=== PATIENT | female | born 1985 | race American Indian/Alaskan Native ===

== ENCOUNTER 2017-11-12 22:55 | Emergency (ER) | payer MEDICAID | END 2017-11-13 | disposition left against medical advice (07) | LOC: ED 22:55 | DX: R10.9 Unspecified abdominal pain (principal); Z53.21 Procedure and treatment not carried out due to patient leaving prior to being seen by health care provider ==

== ENCOUNTER 2018-05-08 17:12 | Outpatient (CLI) | payer MEDICAID ==
[2018-05-08 17:37] VITALS: BP 115/75
[2018-05-08] MEDS ORDERED: VISTARIL IM ONE (19:02)
== END 2018-05-08 19:45 | disposition home or self-care (01) ==
LOC: TRG 17:12
PROVIDERS: ATTEND Obstetrics & Gynecology
DX: O47.1 False labor at or after 37 completed weeks of gestation (principal); Z3A.39 39 weeks gestation of pregnancy
CPT/HCPCS: 59025; 96372; J3410

== ENCOUNTER 2018-05-15 09:50 | Inpatient (IN) | payer MEDICAID ==
[2018-05-15] MEDS ORDERED: BRETHINE SUB-Q PRN (11:23)
[2018-05-15] MEDS ORDERED: BRETHINE IVP PRN (11:23)
[2018-05-15] MEDS ORDERED: MINERAL OIL PO PRN (11:23)
[2018-05-15] MEDS ORDERED: XYLOCAINE 2% INFILTRATI ONE (11:23)
[2018-05-15] MEDS ORDERED: ZOFRAN IV PRN (11:23)
[2018-05-15] MEDS ORDERED: PITOCin/NS 30 UNIT/500ML 30 UNITS/500 ML BAG IV SCH (12:00)
[2018-05-15] MEDS ORDERED: PITOCin/NS 20 UNIT/1000ML DRIP 20 UNITS/1,000 ML BAG IV SCH ×2 (12:00→21:00)
[2018-05-15 12:24] LABS: Hematocrit 42.2 % (30.3-42.9); Hemoglobin 13.9 gm/dl (10.1-14.3); Mean Corpuscular HGB Conc 33 % (30-34); Mean Corpuscular Volume 83 fl (79-97); Platelet Count 167 K/mm3 (140-440); Red Blood Count 5.11 M/mm3 (3.65-5.03); Red Cell Distribution Width 17.8 % (13.2-15.2)
[2018-05-15] MEDS: SUBLIMAZE IV PRN ×2 (12:58→15:21)
[2018-05-15] MEDS: LACTATED RINGERS 1,000 ML IV SCH ×3 (12:59→18:52)
--- NOTE | 2018-05-15 16:48 | History and Physical Report ---
History of Present Illness Date of examination: 05/15/18 (constant pain) Date of admission: 05/15/18 09:51 History of present illness: EDC Confirmation: 05/19/2018 Gestational Age: 7 6/7 weeks Past History : 8 Term Births: 5 Premature Births: 1 Living Children: 6 Para: 6 Mult. Births: 1 Aborta: 1 Spont. Ab: 1 # 1 Delivery date: 2006 Weeks Gestation: 39.6 Delivery type: Anesthesia type: epidural Delivery location: [place] Sex: Male weight: 6 # 2 Delivery date: 2009 Weeks Gestation: 38 Delivery type: Anesthesia type: epidural Delivery location: [facility] Infant Sex: Male weight: 6 4 # 3 Delivery date: 2012 Weeks Gestation: 39.6 Delivery type: Anesthesia type: epidural Delivery location: [facility] Sex: Male weight: 6 # 4 Delivery date: 04/2013 Weeks Gestation: 4 Delivery type: SAB # 5 Delivery date: 2013 Weeks Gestation: 39 Delivery type: Anesthesia type: epidural Delivery location: [facility] [place] Sex: Female weight: 6-5 Comments: denies # 6 Delivery date: 2014 Weeks Gestation: 39 Delivery type: Anesthesia type: epidural Delivery location: [facility] Inf[facility] Sex: Female weight: 6-6 # 7 Delivery date: 2015 Weeks Gestation: 25 Delivery type: Anesthesia type: epidural Delivery location: [facility] Infant Sex: m/f weight: 2.5 Comments: Twins: male 2 days after delivery; girl is alive and well Past Medical History: Reviewed history from 06/22/2013 and no changes required: Negative Past Medical History Past Surgical History: Reviewed history from 06/22/2013 and no changes required: Negative Past Surgical History Past Medical History Abnormal PAP: negative JOSIE Exposure: negative Infertility: negative Uterine Anomaly: negative Uterine Surgery (not C/S): negative Other Gynecologic Problems: negative Social Hx: no e/t/d Infection History Hx of STD: chlamydia HIV Risk Eval: low risk Hepatitis B Risk Eval: low risk Personal hx. of genital herpes: no Partner hx. of genital herpes: no Rash, Viral, or Febrile illness since last LMP? no Varicella/Chicken Pox Status: Previous Disease TB Risk: no Genetic History Congenital Heart Defect: Mom: no Dad: no Lexie Disease: Mom: no Dad: no Thalassemia Mom: no Dad: no Neural Tube Defect Mom: no Dad: no Down's Syndrome Mom: no Dad: no Barron-Sachs Mom: no Dad: no Sickle Cell Disease/Trait Mom: no Dad: no Hemophilia Mom: no Dad: no Muscular Dystrophy Mom: no Dad: no Cystic Fibrosis Mom: no Dad: no [place] Chorea Mom: no Dad: no Mental Retardation Mom: no Dad: no Fragile X Mom: no Dad: no Other Genetic/Chromosomal Disorder Mom: no Dad: no Child w/other defect Mom: no Dad: no Enviromental Exposures Xray Exposure: no Medication, drug, or alcohol use since LMP: no Chemical/Other Exposure: no Exposure to Cat Liter: no Hx of Parvovirus (Fifth Disease): no Occupational Exposure to Children: none Current Allergies (reviewed today): No known allergies Past History - Obstetrical History Expected Date of Delivery: 05/19/18 Actual Gestation: 39 Week(s) 3 Day(s) : 8 Para: 6 Hx # Term Pregnancies: 5 Number of Pregnancies: 1 (twins: female survived Male passed) Spontaneous Abortions: 1 Induced : 0 Number of Living Children: 6 Medications and Allergies Allergies Allergy/AdvReac Type Severity Reaction Status Date / Time No Known Allergies Allergy Verified 03/22/13 12:31 Home Medications Medication Instructions Recorded Confirmed Last Taken Type Pnv95/Ferrous Fumarate/FA 1 tab PO DAILY 11/12/13 05/15/18 05/14/18 21:00 History [ Vitamins] 1 Acetaminophen/Diphenhydramine 1 each PO HS PRN 05/15/18 05/15/18 05/14/18 22:00 History [Tylenol Pm Ex-Strength Caplet] 1 Active Meds: Active Medications Ephedrine Sulfate (Ephedrine Sulfate) 10 mg IV Q2M PRN PRN Reason: Hypotension Fentanyl (Sublimaze) 100 mcg IV Q2H PRN PRN Reason: Labor Pain Last Admin: 05/15/18 15:21 Dose: 100 mcg Documented by: Lactated Ringer's (Lactated Ringers) 1,000 mls @ 125 mls/hr IV DIRECT KIRSTIN Last Admin: 05/15/18 16:40 Dose: 1,200 mls/hr Documented by: Oxytocin/Sodium Chloride (Pitocin/Ns 20 Unit/1000ml Drip) 20 units in 1,000 mls @ 125 mls/hr IV DIRECT KIRSTIN Oxytocin/Sodium Chloride (Pitocin/Ns 30 Unit/500ml) 30 units in 500 mls @ 4 mls/hr IV Q30MIN [facility]; Protocol Last Titration: 05/15/18 14:41 Dose: 12 ml/hr, 12 mls/hr Documented by: Sodium Chloride (Nacl 0.9% 1000 Ml) 1,000 mls @ 0 mls/hr VG DIRECT KIRSTIN Mineral Oil (Mineral Oil) 30 ml PO QHS PRN PRN Reason: Constipation Ondansetron HCl (Zofran) 4 mg IV Q8H PRN PRN Reason: Nausea And Vomiting Terbutaline Sulfate (Brethine) 0.25 mg SUB-Q ONCE PRN PRN Reason: Hyperstimulation/Hypertonicity Terbutaline Sulfate (Brethine) 0.25 mg IVP ONCE PRN PRN Reason: Hyperstimulation/Hypertonicity - Vital Signs Vital signs: Vital Signs Temp Resp 98.1 F 18 05/15/18 10:13 05/15/18 10:13 Temp Pulse Resp BP Pulse Ox 98.0 F 85 20 116/63 05/15/18 14:06 05/15/18 16:15 05/15/18 15:21 05/15/18 16:15 - Physical Exam Breasts: Positive: deferred Cardiovascular: Regular rate, Normal S1, Normal S2 Lungs: Positive: Clear to auscultation Abdomen: Positive: normal appearance, soft, normal bowel sounds. Negative: distention, tenderness Genitourinary (Female): Positive: normal external genitalia Vulva: both: normal Vagina: Positive: normal moisture. Negative: discharge Cervix: Negative: lesion, discharge Uterus: Positive: normal size, normal contour Adnexa: both: normal Anus/Rectum: Positive: normal perianal skin, heme negative. Negative: rectal mass, hemorrhoids Extremities: Positive: normal Deep Tendon Reflex Grade: Normal +2 - Obstetrical FHR: category 1 Uterine Contraction Monitor Mode: Internal Cervical Dilatation: 4 (copious amts clear fluid) Cervical Effacement Percentage: 100 (ISE/IUPC placed) station: 0 Uterine Contraction Pattern: Regular Uterine Tone Measurement Phase: Resting Uterine Contraction Intensity: Moderate Results Result Diagrams: 05/15/18 11:54 Abnormal lab results 02/04/19 Range/Units 11:54 RBC 5.11 H (3.65-5.03) M/mm3 MCH 27 L (28-32) pg RDW 17.8 H (13.2-15.2) % All other labs normal. Strep Gp B LUCIO Negative HBsAg Screen Negative Negative *1 RPR Non Reactive Non Reactive *2 Rubella Antibodies, IgG 18.30 index Immune >0.99 *3 Non-immune <0.90 Equivocal 0.90 - 0.99 Immune >0.99 ABO Grouping O *4 Rh Factor Positive *5 Please note: Prior records for this patient's ABO / Rh type are not available for additional verification. Antibody Screen Negative Negative *6 WBC 7.1 x10E3/uL 3.4-10.8 *7 RBC 4.53 x10E6/uL 3.77-5.28 *8 Hemoglobin [L] 10.4 g/dL 11.1-15.9 *9 Hematocrit 34.9 % 34.0-46.6 *10 MCV [L] 77 fL 79-97 *11 MCH [L] 23.0 pg 26.6-33.0 *12 MCHC [L] 29.8 g/dL 31.5-35.7 *13 RDW [H] 17.2 % 12.3-15.4 *14 Platelets 304 x10E3/uL 150-379 *15 Neutrophils 73 % Not Estab. *16 Lymphs 17 % Not Estab. *17 Monocytes 8 % Not Estab. *18 Eos 2 % Not Estab. *19 Basos 0 % Not Estab. *20 ! Immature Cells <No Reported Value> *21 Neutrophils (Absolute) 5.2 x10E3/uL 1.4-7.0 *22 Lymphs (Absolute) 1.2 x10E3/uL 0.7-3.1 *23 Monocytes(Absolute) 0.6 x10E3/uL 0.1-0.9 *24 Eos (Absolute) 0.1 x10E3/uL 0.0-0.4 *25 Baso (Absolute) 0.0 x10E3/uL 0.0-0.2 *26 ! Immature Granulocytes 0 % Not Estab. *27 ! Immature Grans (Abs) 0.0 x10E3/uL 0.0-0.1 *28 ! NRBC <No Reported Value> *29 Hematology Comments: <No Reported Value> *30 Tests: (2) SMN1 Copy Number Analysis ([id number]) ! Genetic Counselor: Not applicable *31 ! Client Specimen ID: Not applicable *32 ! Specimen Type: SPRCS *33 Peripheral Blood ! Specimen(s) Received: SPRCS *34 1 - Yellow (ACD) 10 ml round bottom tube(s) ! Clinical Data: SPRCS *35 Not Provided ! Ethnicity: SPRCS *36 Not Provided ! SMA Results: SPRCS *37 SMN1 copy number: 3 (Reduced Carrier Risk) ! SMA Interpretation: Note *38 This individual has an SMN1 copy number of three (or more). This result reduces but does not eliminate the risk to be a carrier of SMA. Information regarding clinical indication may provide a more detailed interpretation. Tests: (3) Cystic Fibrosis Profile (089804) ! CF, Screen Comment: *45 RESULTS: Negative for 32 mutations analyzed Tests: (4) HB Solu + Rflx Fra (188421) Hemoglobin (Hgb) Solubility Negative Negative *47 Tests: (5) HCV Ab w/Rflx to Verification ([id number]) ! HCV Ab <0.1 s/co ratio 0.0-0.9 *48 Tests: (6) Comment: (225272) ! Comment: SPRCS *49 Non reactive HCV antibody screen is consistent with no HCV infection, unless recent infection is suspected or other evidence exists to indicate HCV infection. Tests: (7) Panel 289079 ([id number]) HIV Screen 4th Generation wRfx Non Reactive Non Reactive *50 Tests: (8) Urine Culture, Routine (120130) Urine Culture, Routine Final report *51 Tests: (9) Result ([id number]) ! Result 1 MUG *52 Mixed urogenital yehuda 25,000-50,000 colony forming units per mL Assessment and Plan @ 39 weeks in active labor GBS negative Orders in EMR
[2018-05-15] MEDS ORDERED: NARCAN 2 MG/2 ML IV PRN (16:51)
--- NOTE | 2018-05-15 16:53 | Anesthesia Consultation ---
Anesthesia Consult and Med Hx - Airway Anesthetic Teeth Evaluation: Good ROM Head & Neck: Adequate Mental/Hyoid Distance: Adequate Mallampati Class: Class I Intubation Access Assessment: Good - Pulmonary Exam CTA: Yes - Cardiac Exam Cardiac Exam: RRR - Pre-Operative Health Status ASA Pre-Surgery Classification: ASA2 Proposed Anesthetic Plan: Epidural - Pulmonary Hx Smoking: No Hx Asthma: No COPD: No Hx Pneumonia: No - Cardiovascular System Hx Hypertension: No - Central Nervous System Hx Seizures: No Hx Psychiatric Problems: Yes (ptsd) - Endocrine Hx Renal Disease: No Hx End Stage Renal Disease: No Hx Hypothyroidism: No Hx Hyperthyroidism: No - Hematic Hx Anemia: No Hx Sickle Cell Disease: No - Other Systems Hx Alcohol Use: No
--- NOTE | 2018-05-15 16:55 | Anesthesia Day of Surgery ---
Anesthesia Day of Surgery - Day of Surgery Patient Examined: Yes Patient H&P Reviewed: Yes Patient is NPO: Yes Beta Blockers: No Cardiac Clearance: No Pulmonary Clearance: No Eusebio's Test: N/A
[2018-05-15] MEDS ORDERED: LIDOCAINE 1.5%/EPI 1:200,000 INFILTRATI ONE (16:58)
[2018-05-15] MEDS ORDERED: MARCAINE 0.25% INFILTRATI ONE (16:58)
[2018-05-15] MEDS ORDERED: NACL 0.9% 1000 ML 1,000 ML VG SCH (17:00)
[2018-05-15] MEDS ORDERED: fentaNYL-BUPIV 2 MCG/ML-0.125% 200 MCG/100 ML BAG EPIDURAL SCH (17:00)
--- NOTE | 2018-05-15 18:00 | Progress Note ---
Assessment and Plan pitocin off during epidural placement pt had variables prior and amnio infusion started SVE 4,100,-2 Pit restarted Will re-eval in one hour. Subjective - Subjective Date of service: 05/15/18 (getting relief with epidural) Interval history: EDC Confirmation: 05/19/2018 Gestational Age: 7 6/7 weeks Past History : 8 Term Births: 5 Premature Births: 1 Living Children: 6 Para: 6 Mult. Births: 1 Aborta: 1 Spont. Ab: 1 # 1 Delivery date: 2006 Weeks Gestation: 39.6 Delivery type: Anesthesia type: epidural Delivery location: [place] Infant Sex: Male weight: 6 # 2 Delivery date: 2009 Weeks Gestation: 38 Delivery type: Anesthesia type: epidural Delivery location: [facility] Infant Sex: Male weight: 6 4 # 3 Delivery date: 2012 Weeks Gestation: 39.6 Delivery type: Anesthesia type: epidural Delivery location: [facility] Infant Sex: Male weight: 6 # 4 Delivery date: 04/2013 Weeks Gestation: 4 Delivery type: SAB # 5 Delivery date: 2013 Weeks Gestation: 39 Delivery type: Anesthesia type: epidural Delivery location[place] [facility] [place] Sex: Female weight: 6-5 Comments: denies # 6 Delivery date: 2014 Weeks Gestation: 39 Delivery type: Anesthesia type: epidural Delivery location: [facility] Inf[facility] Sex: Female weight: 6-6 # 7 Delivery date: 2015 Weeks Gestation: 25 Delivery type: Anesthesia type: epidural Delivery location: [facility] Sex: m/f weight: 2.5 Comments: Twins: male 2 days after delivery; girl is alive and well Past Medical History: Reviewed history from 06/22/2013 and no changes required: Negative Past Medical History Past Surgical History: Reviewed history from 06/22/2013 and no changes required: Negative Past Surgical History Past Medical History Abnormal PAP: negative JOSIE Exposure: negative Infertility: negative Uterine Anomaly: negative Uterine Surgery (not C/S): negative Other Gynecologic Problems: negative Social Hx: no e/t/d Infection History Hx of STD: chlamydia HIV Risk Eval: low risk Hepatitis B Risk Eval: low risk Personal hx. of genital herpes: no Partner hx. of genital herpes: no Rash, Viral, or Febrile illness since last LMP? no Varicella/Chicken Pox Status: Previous Disease TB Risk: no Genetic History Congenital Heart Defect: Mom: no Dad: no Lexie Disease: Mom: no Dad: no Thalassemia Mom: no Dad: no Neural Tube Defect Mom: no Dad: no Down's Syndrome Mom: no Dad: no Barron-Sachs Mom: no Dad: no Sickle Cell Disease/Trait Mom: no Dad: no Hemophilia Mom: no Dad: no Muscular Dystrophy Mom: no Dad: no Cystic Fibrosis Mom: no Dad: no [place] Chorea Mom: no Dad: no Mental Retardation Mom: no Dad: no Fragile X Mom: no Dad: no Other Genetic/Chromosomal Disorder Mom: no Dad: no Child w/other defect Mom: no Dad: no Enviromental Exposures Xray Exposure: no Medication, drug, or alcohol use since LMP: no Chemical/Other Exposure: no Exposure to Cat Liter: no Hx of Parvovirus (Fifth Disease): no Occupational Exposure to Children: none Current Allergies (reviewed today): No known allergies Patient reports: movement normal Objective - Vital Signs Vital Signs: Vital Signs - 12hr 05/15/18 05/15/18 05/15/18 10:13 10:35 12:44 Temperature 98.1 F Pulse Rate 87 86 Respiratory 18 Rate Blood Pressure 114/73 111/65 O2 Sat by Pulse Oximetry 05/15/18 05/15/18 05/15/18 13:15 13:28 13:45 Temperature Pulse Rate 78 69 Respiratory 20 Rate Blood Pressure 96/53 98/60 O2 Sat by Pulse Oximetry 05/15/18 05/15/18 05/15/18 14:06 14:14 14:44 Temperature 98.0 F Pulse Rate 70 75 Respiratory 20 Rate Blood Pressure 105/61 104/66 O2 Sat by Pulse Oximetry 05/15/18 05/15/18 05/15/18 15:15 15:21 15:46 Temperature Pulse Rate 82 81 Respiratory 20 Rate Blood Pressure 118/67 112/56 O2 Sat by Pulse Oximetry 05/15/18 05/15/18 05/15/18 16:15 16:46 16:51 Temperature Pulse Rate 85 94 H 92 H Respiratory Rate Blood Pressure 116/63 123/79 O2 Sat by Pulse 100 Oximetry 05/15/18 05/15/18 05/15/18 16:56 17:01 17:06 Temperature Pulse Rate 101 H 95 H 93 H Respiratory Rate Blood Pressure O2 Sat by Pulse 100 100 100 Oximetry 05/15/18 05/15/18 05/15/18 17:11 17:16 17:25 Temperature Pulse Rate 85 86 109 H Respiratory Rate Blood Pressure 95/57 O2 Sat by Pulse 100 99 Oximetry 05/15/18 05/15/18 05/15/18 17:30 17:33 17:35 Temperature Pulse Rate 108 H 116 H 111 H Respiratory Rate Blood Pressure 137/77 138/75 O2 Sat by Pulse 100 99 Oximetry 05/15/18 05/15/18 05/15/18 17:37 17:39 17:40 Temperature Pulse Rate 112 H 105 H 110 H Respiratory Rate Blood Pressure 134/80 123/82 O2 Sat by Pulse 98 Oximetry 05/15/18 05/15/18 05/15/18 17:41 17:43 17:45 Temperature Pulse Rate 114 H 108 H 111 H Respiratory Rate Blood Pressure 115/74 112/69 99/67 O2 Sat by Pulse 99 Oximetry 05/15/18 05/15/18 05/15/18 17:46 17:47 17:50 Temperature 98.3 F Pulse Rate 123 H 113 H Respiratory 20 Rate Blood Pressure 115/57 O2 Sat by Pulse 98 Oximetry 05/15/18 05/15/18 05/15/18 17:51 17:53 17:55 Temperature Pulse Rate 118 H 126 H 94 H Respiratory Rate Blood Pressure 93/52 95/52 O2 Sat by Pulse 97 Oximetry - Exam Breasts: deferred Cardiovascular: Regular rate Lungs: Normal air movement Abdomen: Present: normal appearance, soft. Absent: distention, tenderness Uterus: Present: normal FHR: auscultation normal, category 1 Uterine Contraction Monitor Mode: Internal Cervical Dilatation: 4 Cervical Effacement Percentage: 100 station: -2 Uterine Contraction Pattern: Irregular Uterine Tone Measurement Phase: Resting Extremities: normal Deep Tendon Reflex Grade: Normal +2 - Labs Labs: Abnormal Labs 05/15/18 11:54 RBC 5.11 H MCH 27 L RDW 17.8 H Laboratory Results - last 24 hr 05/15/18 05/15/18 11:54 11:54 WBC 7.2 RBC 5.11 H Hgb 13.9 Hct 42.2 MCV 83 MCH 27 L MCHC 33 RDW 17.8 H Plt Count 167 Blood Type O POSITIVE Antibody Screen Negative
[2018-05-15 18:48] LABS: Amphetamine Screen,Urine PRESUMPTIVE NEGATIVE; Benzodiazepines Screen,Urine PRESUMPTIVE NEGATIVE; Cannabinoid Screen,Urine PRESUMPTIVE NEGATIVE; Cocaine Screen,Urine PRESUMPTIVE NEGATIVE; Methadone Screen,Urine PRESUMPTIVE NEGATIVE; Opiate Screen,Urine PRESUMPTIVE NEGATIVE
[2018-05-15] MEDS ORDERED: REGLAN IV ONE (20:34)
[2018-05-15] MEDS ORDERED: PEPCID IV ONE (20:34)
[2018-05-15] MEDS ORDERED: BICITRA PO ONE (20:34)
--- NOTE | 2018-05-15 20:34 | Progress Note ---
Assessment and Plan Consulted with Will restart pitocin and if variables persist will plan for c/s. Explained all concerns to pt and family member. Reviewed risks to pt and NB and the possible need for c/s with all future pregnancies. Arrest of dilatation despite adequate labor and nonreassuring tracing. Pt consented. C/S called Orders in EMR. Subjective - Subjective Date of service: 05/15/18 (deep variables continue ) Interval history: EDC Confirmation: 05/19/2018 Gestational Age: 7 6/7 weeks Past History : 8 Term Births: 5 Premature Births: 1 Living Children: 6 Para: 6 Mult. Births: 1 Aborta: 1 Spont. Ab: 1 # 1 Delivery date: 2006 Weeks Gestation: 39.6 Delivery type: Anesthesia type: epidural Delivery location: [place] Sex: Male weight: 6 # 2 Delivery date: 2009 Weeks Gestation: 38 Delivery type: Anesthesia type: epidural Delivery location: [facility] Sex: Male weight: 6 4 # 3 Delivery date: 2012 Weeks Gestation: 39.6 Delivery type: Anesthesia type: epidural Delivery location: [facility] Infant Sex: Male weight: 6 # 4 Delivery date: 04/2013 Weeks Gestation: 4 Delivery type: SAB # 5 Delivery date: 2013 Weeks Gestation: 39 Delivery type: Anesthesia type: epidural [place] [facility] [place] Sex: Female weight: 6-5 Comments: denies # 6 Delivery date: 2014 Weeks Gestation: 39 Delivery type: Anesthesia type: epidural Delivery location: [facility] Sex: Female weight: 6-6 # 7 Delivery date: 2015 Weeks Gestation: 25 Delivery type: Anesthesia type: epidural Delivery location: [facility] Infant Sex: m/f weight: 2.5 Comments: Twins: male 2 days after delivery; girl is alive and well Past Medical History: Reviewed history from 06/22/2013 and no changes required: Negative Past Medical History Past Surgical History: Reviewed history from 06/22/2013 and no changes required: Negative Past Surgical History Past Medical History Abnormal PAP: negative JOSIE Exposure: negative Infertility: negative Uterine Anomaly: negative Uterine Surgery (not C/S): negative Other Gynecologic Problems: negative Social Hx: no e/t/d Infection History Hx of STD: chlamydia HIV Risk Eval: low risk Hepatitis B Risk Eval: low risk Personal hx. of genital herpes: no Partner hx. of genital herpes: no Rash, Viral, or Febrile illness since last LMP? no Varicella/Chicken Pox Status: Previous Disease TB Risk: no Genetic History Congenital Heart Defect: Mom: no Dad: no Lexie Disease: Mom: no Dad: no Thalassemia Mom: no Dad: no Neural Tube Defect Mom: no Dad: no Down's Syndrome Mom: no Dad: no Barron-Sachs Mom: no Dad: no Sickle Cell Disease/Trait Mom: no Dad: no Hemophilia Mom: no Dad: no Muscular Dystrophy Mom: no Dad: no Cystic Fibrosis Mom: no Dad: no Jan Chorea Mom: no Dad: no Mental Retardation Mom: no Dad: no Fragile X Mom: no Dad: no Other Genetic/Chromosomal Disorder Mom: no Dad: no Child w/other defect Mom: no Dad: no Enviromental Exposures Xray Exposure: no Medication, drug, or alcohol use since LMP: no Chemical/Other Exposure: no Exposure to Cat Liter: no Hx of Parvovirus (Fifth Disease): no Occupational Exposure to Children: none Current Allergies (reviewed today): No known allergies Patient reports: movement normal Objective - Vital Signs Vital Signs: Vital Signs - 12hr 05/15/18 05/15/18 05/15/18 10:13 10:35 12:44 Temperature 98.1 F Pulse Rate 87 86 Respiratory 18 Rate Blood Pressure 114/73 111/65 O2 Sat by Pulse Oximetry 05/15/18 05/15/18 05/15/18 13:15 13:28 13:45 Temperature Pulse Rate 78 69 Respiratory 20 Rate Blood Pressure 96/53 98/60 O2 Sat by Pulse Oximetry 05/15/18 05/15/18 05/15/18 14:06 14:14 14:44 Temperature 98.0 F Pulse Rate 70 75 Respiratory 20 Rate Blood Pressure 105/61 104/66 O2 Sat by Pulse Oximetry 05/15/18 05/15/18 05/15/18 15:15 15:21 15:46 Temperature Pulse Rate 82 81 Respiratory 20 Rate Blood Pressure 118/67 112/56 O2 Sat by Pulse Oximetry 05/15/18 05/15/18 05/15/18 16:15 16:46 16:51 Temperature Pulse Rate 85 94 H 92 H Respiratory Rate Blood Pressure 116/63 123/79 O2 Sat by Pulse 100 Oximetry 05/15/18 05/15/18 05/15/18 16:56 17:01 17:06 Temperature Pulse Rate 101 H 95 H 93 H Respiratory Rate Blood Pressure O2 Sat by Pulse 100 100 100 Oximetry 05/15/18 05/15/18 05/15/18 17:11 17:16 17:25 Temperature Pulse Rate 85 86 109 H Respiratory Rate Blood Pressure 95/57 O2 Sat by Pulse 100 99 Oximetry 05/15/18 05/15/18 05/15/18 17:30 17:33 17:35 Temperature Pulse Rate 108 H 116 H 111 H Respiratory Rate Blood Pressure 137/77 138/75 O2 Sat by Pulse 100 99 Oximetry 05/15/18 05/15/18 05/15/18 17:37 17:39 17:40 Temperature Pulse Rate 112 H 105 H 110 H Respiratory Rate Blood Pressure 134/80 123/82 O2 Sat by Pulse 98 Oximetry 05/15/18 05/15/18 05/15/18 17:41 17:43 17:45 Temperature Pulse Rate 114 H 108 H 111 H Respiratory Rate Blood Pressure 115/74 112/69 99/67 O2 Sat by Pulse 99 Oximetry 05/15/18 05/15/18 05/15/18 17:46 17:47 17:50 Temperature 98.3 F Pulse Rate 123 H 113 H Respiratory 20 Rate Blood Pressure 115/57 O2 Sat by Pulse 98 Oximetry 05/15/18 05/15/18 05/15/18 17:51 17:53 17:55 Temperature Pulse Rate 118 H 126 H 94 H Respiratory Rate Blood Pressure 93/52 95/52 O2 Sat by Pulse 97 Oximetry 05/15/18 05/15/18 05/15/18 17:58 17:59 18:00 Temperature Pulse Rate 100 H 88 74 Respiratory Rate Blood Pressure 77/38 64/31 O2 Sat by Pulse 96 Oximetry 05/15/18 05/15/18 05/15/18 18:01 18:03 18:05 Temperature Pulse Rate 75 62 54 L Respiratory Rate Blood Pressure 85/48 119/68 122/55 O2 Sat by Pulse 100 Oximetry 05/15/18 05/15/18 05/15/18 18:10 18:11 18:15 Temperature Pulse Rate 90 93 H 87 Respiratory Rate Blood Pressure 110/55 O2 Sat by Pulse 99 98 Oximetry 05/15/18 05/15/1805/15/19 18:17 18:20 18:21 Temperature Pulse Rate 97 H 86 89 Respiratory Rate Blood Pressure 115/56 102/58 O2 Sat by Pulse 97 Oximetry 05/15/18 05/15/18 05/15/18 18:25 18:27 18:30 Temperature Pulse Rate 91 H 101 H 121 H Respiratory Rate Blood Pressure 103/54 O2 Sat by Pulse 98 98 Oximetry 05/15/18 05/15/18 05/15/18 18:31 18:35 18:36 Temperature Pulse Rate 107 H 116 H 112 H Respiratory Rate Blood Pressure 95/51 85/48 O2 Sat by Pulse 98 Oximetry 05/15/18 05/15/18 05/15/18 18:40 18:41 18:44 Temperature Pulse Rate 108 H 117 H 101 H Respiratory Rate Blood Pressure 89/50 98/54 O2 Sat by Pulse 98 Oximetry 05/15/18 05/15/18 05/15/18 18:45 18:47 18:50 Temperature Pulse Rate 105 H 82 78 Respiratory Rate Blood Pressure 103/54 O2 Sat by Pulse 99 98 Oximetry 05/15/18 05/15/18 05/15/18 18:51 18:55 18:56 Temperature Pulse Rate 72 86 83 Respiratory Rate Blood Pressure 107/57 107/57 O2 Sat by Pulse 99 Oximetry 05/15/18 05/15/18 05/15/18 19:00 19:01 19:05 Temperature Pulse Rate 114 H 94 H 112 H Respiratory Rate Blood Pressure 99/56 O2 Sat by Pulse 99 98 Oximetry 05/15/18 05/15/18 05/15/18 19:07 19:10 19:11 Temperature Pulse Rate 110 H 89 101 H Respiratory Rate Blood Pressure 109/56 105/57 O2 Sat by Pulse 100 Oximetry 05/15/18 05/15/18 05/15/18 19:15 19:16 19:20 Temperature Pulse Rate 95 H 108 H 113 H Respiratory Rate Blood Pressure 98/53 O2 Sat by Pulse 100 100 Oximetry 05/15/18 05/15/18 05/15/18 19:23 19:25 19:30 Temperature Pulse Rate 79 106 H 104 H Respiratory Rate Blood Pressure 108/52 O2 Sat by Pulse 100 100 Oximetry 05/15/18 05/15/18 05/15/18 19:32 19:35 19:36 Temperature Pulse Rate 80 109 H 101 H Respiratory Rate Blood Pressure 105/58 101/55 O2 Sat by Pulse 100 Oximetry 05/15/18 05/15/18 05/15/18 19:40 19:41 19:45 Temperature Pulse Rate 91 H 111 H 91 H Respiratory Rate Blood Pressure 104/60 O2 Sat by Pulse 100 100 Oximetry 05/15/18 05/15/18 05/15/18 19:47 19:50 19:51 Temperature Pulse Rate 102 H 88 108 H Respiratory Rate Blood Pressure 106/59 105/56 O2 Sat by Pulse 100 Oximetry 05/15/18 05/15/18 05/15/18 19:58 20:02 20:07 Temperature Pulse Rate 103 H 121 H 98 H Respiratory Rate Blood Pressure 120/80 114/56 116/56 O2 Sat by Pulse 100 Oximetry 05/15/18 05/15/18 05/15/18 20:11 20:12 20:17 Temperature Pulse Rate 98 H 94 H 94 H Respiratory Rate Blood Pressure 121/61 116/71 O2 Sat by Pulse 100 100 Oximetry 05/15/18 05/15/18 20:22 20:27 Temperature Pulse Rate 102 H 85 Respiratory Rate Blood Pressure 118/67 116/77 O2 Sat by Pulse 100 100 Oximetry - Exam Breasts: deferred Cardiovascular: Regular rate Lungs: Normal air movement Abdomen: Present: normal appearance, soft Uterus: Present: normal FHR: category 2 (deep variables with Qctx) Uterine Contraction Monitor Mode: Internal Cervical Dilatation: 4 Cervical Effacement Percentage: 100 station: -2 Uterine Contraction Pattern: Regular Uterine Tone Measurement Phase: Resting Uterine Contraction Intensity: Moderate Extremities: normal Deep Tendon Reflex Grade: Normal +2 - Labs Labs: Abnormal Labs 05/15/18 11:54 RBC 5.11 H MCH 27 L RDW 17.8 H Laboratory Results - last 24 hr 05/15/18 05/15/18 05/15/18 11:54 11:54 16:00 WBC 7.2 RBC 5.11 H Hgb 13.9 Hct 42.2 MCV 83 MCH 27 L MCHC 33 RDW 17.8 H Plt Count 167 Urine Opiates Screen Presumptive negative Urine Methadone Screen Presumptive negative Ur Barbiturates Screen Presumptive negative Ur Phencyclidine Scrn Presumptive negative Ur Amphetamines Screen Presumptive negative U Benzodiazepines Scrn Presumptive negative Urine Cocaine Screen Presumptive negative U Marijuana (THC) Screen Presumptive negative Drugs of Abuse Note Disclamer Blood Type O POSITIVE Antibody Screen Negative
[2018-05-15] MEDS ORDERED: ANCEF/STERILE WATER 2 GM/20 ML 2 GM/20 ML SYRINGE IV NR (21:00)
[2018-05-15] MEDS ORDERED: LACTATED RINGERS 1,000 ML IV SCH (21:00)
[2018-05-15] MEDS ORDERED: XYLOCAINE 2%/ EPI 1:200,000 INFILTRATI ONE (21:04)
[2018-05-15] MEDS ORDERED: ZOFRAN ONE (21:33)
[2018-05-15] MEDS ORDERED: NEO SYNEPHRINE/NS Syringe(OR USE) IV ONE (21:35)
[2018-05-15] MEDS ORDERED: WATER FOR IRRIG STERILE IR ONE (21:45)
[2018-05-15] MEDS ORDERED: NACL 0.9% IR ONE (21:45)
[2018-05-15] MEDS ORDERED: VERSED ONE (21:48)
[2018-05-15] MEDS ORDERED: TORADOL ONE (22:13)
[2018-05-15] MEDS ORDERED: ASTRAMORPH PF 10MG/10ML ONE (22:16)
[2018-05-15] MEDS ORDERED: NARCAN 0.4 MG/1 ML IV PRN (22:33)
[2018-05-15] MEDS ORDERED: PHENERGAN PR PRN (22:33)
[2018-05-15] MEDS ORDERED: PHENERGAN PO PRN (22:33)
--- NOTE | 2018-05-15 22:36 | Post Anesthesia Evaluation ---
- Post Anesthesia Evaluation Patient Participated: Yes Airway Patent: Yes Stable Respiratory Function: Yes Nausea/Vomiting: No Temp > 96.8F: Yes Pain Manageable: Yes Adequeate Hydration: Yes Anesthesia Complications: No Block Receding Appropriately: Yes Patient on Ventilator: No
--- NOTE | 2018-05-15 22:37 | Operative Report ---
Operative Report Operative Report: Date of procedure: 05/15/2018 Pre-operative diagnosis: And drinking at 39 weeks with failure of dil atation and nonreassuring heart tracing Post-operative diagnosis: Same Procedure name(s): Primary low transverse section Surgeon: Du Hope MD Tank Car Inspector: Etta Marcelino, certified nurse economic research assistant Anesthesia: Epidural EBL: 600 mL Complications: None Findings: No uterus tubes and ovaries bilaterally, male infant with nuchal cord 1. Weight 5 lbs. 15 oz. Apgars 8 at 1 minute and 9 at 5 minutes Specimen(s): None Procedure: The patient was brought to the operating room. Her epidural was dosed without any complications. She was then placed in left lateral tilt. Prepped and draped in the usual sterile manner. After testing for adequate anesthesia level, a Pfannenstiel incision was made. This incision was taken down to the fascia. The fascia was then nicked in the midline. This incision was extended out laterally with Moreno scissors. The fascia was then sharply and bluntly from the underlying rectus muscles. The rectus muscles were bluntly and sharply . The peritoneum was then entered with the nail machine operator's fingers. This incision was spread vertically with care not to damage the bladder below. The bladder flap was then formed sharply and bluntly with Metzenbaum scissors. Bladder blade was placed. A transverse incision was made in lower uterine segment. This incision was extended laterally with the operators fingers. The amniotic sac was then entered bluntly with the nail machine operator's fingers. The infant was delivered from the vertex position. The nuchal cord was easily reduced. Bulb suction on the mother's abdomen. Cord was double clamped and cut. The was then passed to the nursery personnel who were in attendance. The above scores were given by the nursery personnel. The placenta was then bluntly removed. The uterus was then externalized and wiped clean the remaining products. The uterine incision was closed in layers. The first incision was closed in a locking manner using 0 Vicryl. This was followed by imbricating stitch also with 0 Vicryl. This closure was hemostatic at additional [id number] sutures. The bladder flap was copiously irrigated and found to be hemostatic. The pelvis was copiously irrigated and found to be hemostatic. The uterus was then placed back to the patient's abdomen. Surgicel was placed over the uterine incision. The retractors were removed. The rectus muscles were inspected and found to be hemostatic. The fascia was then closed in a running manner using 0 Vicryl. This incision was hemostatic irrigation Bovie. The skin was reapproximated with 4-0 Vicryl subcuticularly. The patient tolerated procedure well. Her urine was clear. The was admitted to the well baby nursery. The patient was accompanied to recovery room in good co ndition. Instrument count correct times 3.
[2018-05-15] MEDS ORDERED: SODIUM CHLORIDE FLUSH SYRINGE 10 ML IV PRN (23:00)
[2018-05-16] MEDS ORDERED: PITOCin/NS 20 UNIT/1000ML DRIP 20 UNITS/1,000 ML BAG IV SCH (00:44)
[2018-05-16] MEDS ORDERED: TUCKS PAD TP PRN (00:44)
[2018-05-16] MEDS ORDERED: LANSINOH TP PRN (00:44)
[2018-05-16] MEDS ORDERED: NORCO 5/325 PO PRN (00:44)
[2018-05-16] MEDS ORDERED: NARCAN 0.4 MG/1 ML IV PRN (00:44)
[2018-05-16] MEDS ORDERED: D5LR 1,000 ML IV SCH (00:44)
[2018-05-16] MEDS ORDERED: SODIUM CHLORIDE FLUSH SYRINGE 10 ML IV PRN (00:44)
[2018-05-16] MEDS: TORADOL IV SCH ×4 (02:02→16:00)
[2018-05-16] MEDS: ANCEF/NS 1 GM/50 ML 1 GM/50 ML BAG IV SCH ×2 (04:56→13:19)
--- NOTE | 2018-05-16 08:02 | Progress Note ---
Assessment and Plan patient sitting up holding baby, dressing dry and intact. VSSAF. H&H ordered for 1026. Lochia scant. Encouraged . Pt reports + flatus so will order regular breakfast. Continue postop pathway. - Patient Problems (1) delivery delivered Current Visit: Yes Status: Acute Subjective - Subjective Date of service: 05/16/18 Principal diagnosis: Postop day #1 s/p primary c/s Patient reports: appetite normal, pain well controlled, flatus, ambulating normally, no dizzy ambulation, no nauseated [place]: doing well, bottle feeding Objective - Vital Signs Latest vital signs: Vital Signs Temp Pulse Resp BP BP Pulse Ox 05/16/18 06:36 97.9 F 90 18 93/49 96 05/16/18 03:46 18 05/16/18 03:16 22 05/16/18 02:31 97.6 F 108 H 19 91/53 96 05/16/18 02:02 18 05/15/18 23:30 98.2 F 105 H 18 94/48 05/15/18 23:15 92 H 20 94/50 05/15/18 23:00 99 H 15 84/43 05/15/18 22:45 94 H 18 86/43 05/15/18 22:40 95 H 20 93/39 05/15/18 22:35 88 20 83/50 05/15/18 22:30 97.7 F 96 H 21 93/39 05/15/18 21:12 127 H 99 05/15/18 21:07 113 H 98 05/15/18 21:02 109 H 97 05/15/18 20:57 109 H 98 05/15/18 20:52 122 H 99 05/15/18 20:47 104 H 100 05/15/18 20:42 100 H 114/68 100 05/15/18 20:38 90 123/69 05/15/18 20:37 89 100 05/15/18 20:32 85 100 05/15/18 20:31 88 111/62 05/15/18 20:27 85 116/77 100 05/15/18 20:22 102 H 118/67 100 05/15/18 20:17 94 H 116/71 100 05/15/18 20:12 94 H 100 05/15/18 20:11 98 H 121/61 05/15/18 20:07 98 H 116/56 100 05/15/18 20:02 121 H 114/56 05/15/18 20:00 98.9 F 111 H 18 98/60 98 05/15/18 19:58 103 H 120/80 05/15/18 19:51 108 H 105/56 05/15/18 19:50 88 100 05/15/18 19:47 102 H 106/59 05/15/18 19:45 91 H 100 05/15/18 19:41 111 H 104/60 05/15/18 19:40 91 H 100 05/15/18 19:36 101 H 101/55 05/15/18 19:35 109 H 100 05/15/18 19:32 80 105/58 05/15/18 19:30 104 H 100 05/15/18 19:25 106 H 100 05/15/18 19:23 79 108/52 05/15/18 19:20 113 H 100 05/15/18 19:16 108 H 98/53 05/15/18 19:15 95 H 100 05/15/18 19:11 101 H 105/57 05/15/18 19:10 89 100 05/15/18 19:07 110 H 109/56 05/15/18 19:05 112 H 98 05/15/18 19:01 94 H 99/56 05/15/18 19:00 114 H 99 05/15/18 18:56 83 107/57 05/15/18 18:55 86 99 05/15/18 18:51 72 107/57 05/15/18 18:50 78 98 05/15/18 18:47 82 103/54 05/15/18 18:45 105 H 99 05/15/18 18:44 101 H 98/54 05/15/18 18:41 117 H 89/50 05/15/18 18:40 108 H 98 05/15/18 18:36 112 H 85/48 05/15/18 18:35 116 H 98 05/15/18 18:31 107 H 95/51 05/15/18 18:30 121 H 98 05/15/18 18:27 101 H 103/54 05/15/18 18:25 91 H 98 05/15/18 18:21 89 102/58 02/04/19 18:20 86 97 05/15/18 18:17 97 H 115/56 05/15/18 18:15 87 98 05/15/18 18:11 93 H 110/55 05/15/18 18:10 90 99 05/15/18 18:05 54 L 122/55 100 05/15/18 18:03 62 119/68 05/15/18 18:01 75 85/48 05/15/18 18:00 74 96 05/15/18 17:59 88 64/31 05/15/18 17:58 100 H 77/38 05/15/18 17:55 94 H 97 05/15/18 17:53 126 H 95/52 05/15/18 17:51 118 H 93/52 05/15/18 17:50 113 H 98 05/15/18 17:47 123 H 115/57 05/15/18 17:46 98.3 F 20 05/15/18 17:45 111 H 99/67 99 05/15/18 17:43 108 H 112/69 05/15/18 17:41 114 H 115/74 05/15/18 17:40 110 H 98 05/15/18 17:39 105 H 123/82 05/15/18 17:37 112 H 134/80 05/15/18 17:35 111 H 138/75 99 05/15/18 17:33 116 H 137/77 05/15/18 17:30 108 H 100 05/15/18 17:25 109 H 99 05/15/18 17:16 86 95/57 05/15/18 17:11 85 100 05/15/18 17:06 93 H 100 05/15/18 17:01 95 H 100 05/15/18 16:56 101 H 100 05/15/18 16:51 92 H 100 05/15/18 16:46 94 H 123/79 05/15/18 16:15 85 116/63 05/15/18 15:46 81 112/56 05/15/18 15:21 20 05/15/18 15:15 82 118/67 05/15/18 14:44 75 104/66 05/15/18 14:14 70 105/61 05/15/18 14:06 98.0 F 20 05/15/18 13:45 69 98/60 05/15/18 13:28 20 05/15/18 13:15 78 96/53 05/15/18 12:44 86 111/65 05/15/18 10:35 87 114/73 05/15/18 10:13 98.1 F 18 Intake and Output 05/15/18 05/16/18 05/16/18 23:59 07:59 15:59 Intake Total 4791.550 Output Total 320 Balance 4471.550 Intake: IV 4791.550 Lactated Ringers 1,000 ml 1460.417 @ 125 mls/hr IV DIRECT KIRSTIN Rx#:[id number] PITOCin/NS 30 UNIT/500ML 31.133 30 units In 500 ml @ 4 mls/hr IV Q30MIN KIRSTIN Rx#: [id number] Output: Urine 320 Uretheral (Gonsalez) 80 Other: Estimated Blood Loss 600 - Exam Breasts: Present: normal Cardiovascular: Present: Regular rate Lungs: Present: Clear to auscultation, Normal air movement Abdomen: Present: normal appearance, soft Vulva: both: normal Uterus: Present: normal, firm, fundal height at umbilicus Extremities: Present: normal Incision: Present: normal, dry, dressed - Labs Labs: Abnormal lab results 05/15/18 Range/Units 11:54 RBC 5.11 H (3.65-5.03) M/mm3 MCH 27 L (28-32) pg RDW 17.8 H (13.2-15.2) %
[2018-05-16] MEDS ORDERED: NUBAIN IV ONE (08:30)
[2018-05-16 10:47] LABS: Hematocrit 30.9 % (30.3-42.9)
[2018-05-16] MEDS: NORCO 5/325 PO PRN ×3 (12:10→23:40)
[2018-05-16] MEDS ORDERED: BENADRYL IV PRN (15:49)
[2018-05-16] MEDS: IBUPROFEN PO PRN (23:39)
[2018-05-17] MEDS: IBUPROFEN PO PRN ×2 (05:51→21:27)
[2018-05-17] MEDS: NORCO 5/325 PO PRN ×4 (06:01→21:26)
--- NOTE | 2018-05-17 08:33 | Progress Note ---
Assessment and Plan POD 2 s/p primary c/s. Patient reports feeling pain at incision site, but that it is relieved by pain medications. Dressing us still in place. Patient reports she has not been out of bed much since delivery and that she has not showered. Dressing removed. Incision is well approximated, healing well, no drainage or bleeding noted, no signs of infection. Urged patient to ambulate more frequently and to shower. Instructed patient on how to care for incision site. Fundus is firm, ML, U/1. Patient reports bleeding has been scant. No other complaints or concerns voices.VSSAF. Patient requests discharge for tomorrow. Will continue to monitor and continue post op pathway. Subjective - Subjective Date of service: 05/17/18 Principal diagnosis: Postop day #2 s/p primary c/s Patient reports: appetite normal, voiding normally, pain well controlled, ambulating normally : doing well Objective - Vital Signs Latest vital signs: Vital Signs Temp Pulse Resp BP Pulse Ox 05/17/18 06:01 18 05/17/18 05:51 18 05/17/18 00:40 18 05/17/18 00:39 18 05/16/18 23:40 18 05/16/18 23:39 18 05/16/18 23:22 98.3 F 111 H 18 96/42 97 05/16/18 20:52 98.4 F 101 H 18 105/59 98 05/16/18 18:00 20 05/16/18 17:19 98.4 F 93 H 18 108/56 99 05/16/18 12:10 20 05/16/18 11:31 98.7 F 96 H 18 92/60 98 05/16/18 08:46 98.7 F 88 18 92/50 96 Intake and Output 05/16/18 05/17/18 05/17/18 23:59 07:59 15:59 Intake Total 360 240 Output Total 200 200 Balance 160 40 Intake: Oral 360 Intake, Free Water 240 Output: Urine 200 200 Void 200 200 Other: Total, Intake Amount 360 Total, Output Amount 200 200 - Exam Breasts: Present: normal Cardiovascular: Present: Regular rate, Normal S1, Normal S2 Lungs: Present: Clear to auscultation Abdomen: Present: normal appearance, soft Uterus: Present: normal, firm Extremities: Present: normal Incision: Present: normal, dry, intact - Labs Labs: Abnormal lab results 05/16/18 Range/Units 10:12 Hgb 10.0 L D (10.1-14.3) gm/dl
[2018-05-17] MEDS: MILK OF MAGNESIA PO PRN (11:02)
[2018-05-17] MEDS: PRENATAL VITAMIN PO SCH (11:03)
[2018-05-17] MEDS: FEOSOL PO SCH (11:03)
[2018-05-17] MEDS: MYLICON PO PRN (17:47)
[2018-05-18] MEDS: NORCO 5/325 PO PRN ×3 (04:36→16:16)
[2018-05-18] MEDS: IBUPROFEN PO PRN ×3 (04:37→16:17)
--- NOTE | 2018-05-18 08:06 | Discharge Summary ---
Providers - Providers Date of Admission: 05/15/18 09:51 Date of discharge: 05/18/18 (desires d/c home this evening) Attending physician: GABRIELLA SALCIDO 05/16/18 00:44 Consult to Computer Graphics Illustrator [CONS] Routine Reason For Exam: Primary care physician: GABRIELLA SALCIDO Hospitalization Reason for admission: Labor Condition: Good Pertinent studies: postop H&H 02/07.9 Procedures: primary c/s Hospital course: uncomplicated c/s and care Disposition: DC-30 STILL A PATIENT - Discharge Diagnoses (1) delivery delivered Status: Acute Core Measure Documentation - Palliative Care Palliative Care/ Comfort Measures: Not Applicable - Core Measures Any of the following diagnoses?: none Exam - Constitutional Vitals: Temp Pulse Resp BP Pulse Ox 98.7 F 80 18 105/67 98 05/18/18 00:00 05/18/18 00:00 05/18/18 04:37 05/18/18 00:00 05/17/18 18:01 General appearance: Present: no acute distress, well-nourished - EENT Eyes: Present: PERRL ENT: hearing intact, clear oral mucosa - Neck Neck: Present: supple, normal ROM - Respiratory Respiratory effort: normal Respiratory: bilateral: CTA - Cardiovascular Heart Sounds: Present: S1 & S2. Absent: rub, click - Extremities Extremities: pulses symmetrical, No edema Peripheral Pulses: within normal limits - Abdominal General gastrointestinal: Present: soft, non-tender, non-distended, normal bowel sounds Female genitourinary: Present: normal - Integumentary Integumentary: Present: clear, warm, dry - Musculoskeletal Musculoskeletal: gait normal, strength equal bilaterally - Psychiatric Psychiatric: appropriate mood/affect, intact judgment & insight - Neurologic Neurologic: CNII-XII intact, moves all extremities - Additional findings Additional findings: funuds firm, lochia scant, incision D&I, bottle feeding Plan Activity: advance as tolerated Diet: regular Wound: open to air, keep clean and dry, other (Shower daily, dry incision well after shower. ) Follow up with: GABRIELLA SALCIDO MD [Primary Care Provider] - 7 Days (Congratulations. Please call [phone] to schedule your incision check and your son's circumcision in 1 week. Bring EMLA cream to your son's appointment and wait for instructions. Call for any questions or concerns.) Prescriptions: Ferrous Sulfate [Feosol 325 MG tab] 325 mg PO BID #60 tablet Ibuprofen [Motrin 800 MG tab] 800 mg PO Q6H PRN #30 tablet PRN Reason: Pain Lidocain2.5%/Prilocai2.5% [Emla] 5 gm TP ONCE #1 tube oxyCODONE /ACETAMINOPHEN [Percocet 5/325 mg] 1 - 2 tab PO Q4H PRN #30 tablet PRN Reason: Pain, Moderate
[2018-05-18] MEDS: PRENATAL VITAMIN PO SCH (10:33)
[2018-05-18] MEDS: FEOSOL PO SCH (10:34)
[2018-05-18] MEDS: MYLICON PO PRN (15:03)
[2018-05-18] MEDS: MILK OF MAGNESIA PO PRN (15:03)
[2018-05-18 16:53] VITALS: BP 127/85
== END 2018-05-18 17:20 | disposition home or self-care (01) | DRG 766 ==
LOC: TRG 09:50 → LD 09:51 → TRG 09:51 → OB 05-16 01:02
PROVIDERS: ADMIT Obstetrics & Gynecology; ATTEND Obstetrics & Gynecology
PROC: 10D00Z1 Extraction of Products of Conception, Low, Open Approach (ICD-10-PCS; principal; 2018-05-15)
PROC: 3E0E7GC Introduction of Other Therapeutic Substance into Products of Conception, Via Natural or Artificial Opening (ICD-10-PCS; 2018-05-15)
DX: O69.81X0 Labor and delivery complicated by cord around neck, without compression, not applicable or unspecified (principal); O76 Abnormality in fetal heart rate and rhythm complicating labor and delivery; O62.0 Primary inadequate contractions; Z3A.39 39 weeks gestation of pregnancy; Z37.0 Single live birth
CPT/HCPCS: 36415; 59025; 80307; 85014; 85018; 85027; 86592; 86850; 86900; 86901; G0378; A6250; J0690; J1200; J1885; J2250; J2274; J2300; J2370; J2405; J2590; J2765; J3010; J7030; J7120; J7121; Q0169

== ENCOUNTER 2018-07-12 19:08 | Emergency (ER) | payer MEDICAID ==
[2018-07-12] MEDS ORDERED: DELTASONE PO STA (23:08)
--- NOTE | 2018-07-12 23:19 | Emergency Department Report ---
ED Rash HPI - HPI Chief Complaint: Skin Rash Stated Complaint: RASH Time Seen by Provider: 07/12/18 23:06 Duration: 3 Days Location: Chest, Back, Abdomen, Upper Extremities Suspected Cause: Other (possible food ingestion) Rash Symptoms: Yes Itching, No Peeling, No Blistering, No Fever, No Malaise, No Myalgias Severity: mild ED Review of Systems ROS: Stated complaint: RASH Other details as noted in HPI Constitutional: denies: chills, fever Eyes: denies: eye pain, eye discharge, vision change ENT: denies: ear pain, throat pain Respiratory: denies: cough, shortness of breath, wheezing Cardiovascular: denies: chest pain, palpitations Endocrine: no symptoms reported Gastrointestinal: denies: abdominal pain, nausea, diarrhea Genitourinary: denies: urgency, dysuria, discharge Musculoskeletal: denies: back pain, joint swelling, arthralgia Skin: rash. denies: lesions Neurological: denies: headache, weakness, paresthesias Psychiatric: denies: anxiety, depression Hematological/Lymphatic: denies: easy bleeding, easy bruising ED Past Medical Hx - Past Medical History Hx Hypertension: No Hx Congestive Heart Failure: No Hx Diabetes: No Hx Deep Vein Thrombosis: No Hx Renal Disease: No Hx Sickle Cell Disease: No Hx Seizures: No Hx Asthma: No Hx COPD: No Hx HIV: No Additional medical history: Vaginal delivery x 4, Miscarriage x 1 - Surgical History Past Surgical History?: No - Social History Smoking Status: Never Smoker Substance Use Type: None - Medications Home Medications: Home Medications Medication Instructions Recorded Confirmed Last Taken Type Pnv95/Ferrous Fumarate/FA 1 tab PO DAILY 11/12/13 05/15/18 05/14/18 21:00 History [ Vitamins] 1 Acetaminophen/Diphenhydramine 1 each PO HS PRN 05/15/18 05/15/18 05/14/18 22:00 History [Tylenol Pm Ex-Strength Caplet] 1 Ferrous Sulfate [Feosol 325 MG tab] 325 mg PO BID #60 tablet 05/15/18 Unknown Rx Ibuprofen [Motrin 800 MG tab] 800 mg PO Q6H PRN #30 tablet 05/15/18 Unknown Rx Lidocain2.5%/Prilocai2.5% [Emla] 5 gm TP ONCE #1 tube 02/04/19 Unknown Rx oxyCODONE /ACETAMINOPHEN [Percocet 1 - 2 tab PO Q4H PRN #30 tablet 05/15/18 Unknown Rx 5/325 mg] hydrOXYzine HCL [Atarax] 25 mg PO Q6HR PRN #20 tablet 07/12/18 Unknown Rx predniSONE [Prednisone] 50 mg PO DAILY #5 tablet 07/12/18 Unknown Rx Rash Exam - Exam General: Vital signs noted. No distress. Alert and acting appropriately. HEENT: No Periorbital Edema, No Conjuctival Injection, No Chemosis, No Perioral Edema, No Tongue Edema, No Uvular Edema, No Compromised Airway, No Drooling Lungs: Yes Good Air Exchange (Normal Breath Sounds), No Wheezes, No Ronchi, No Stridor, No Cough, No Labored Respirations, No Retractions, No Use of Accessory Muscles, No Other Abnormal Lung Sounds Heart: Yes Regular, No Murmur Skin: Yes Urticarial Rash, Yes Erythema, No Bulla(e), No Excoriations, No Weeping, No Tenderness, No Other Other: Positive: Abdomen Normal, Neurologic Normal, Musculoskeletal Normal ED Course Vital Signs 07/12/18 19:16 Temperature 97.8 F Pulse Rate 72 Respiratory 18 Rate Blood Pressure 104/65 O2 Sat by Pulse 99 Oximetry Critical care attestation.: If time is entered above; I have spent that time in minutes in the direct care of this critically ill patient, excluding procedure time. ED Disposition Clinical Impression: Allergic reaction Disposition: DC-01 TO HOME OR SELFCARE Is pt being admited?: No Does the pt Need Aspirin: No Condition: Stable Instructions: Urticaria (ED), Food Allergy (ED), Allergies (ED) Prescriptions: hydrOXYzine HCL [Atarax] 25 mg PO Q6HR PRN #20 tablet PRN Reason: Itching predniSONE [Prednisone] 50 mg PO DAILY #5 tablet Referrals: VESNA PABON MD [Primary Care Provider] - 3-5 Days
[2018-07-12 23:34] VITALS: BP 103/71
== END 2018-07-12 23:35 | disposition home or self-care (01) ==
LOC: ED 19:08
DX: T78.40XA Allergy, unspecified, initial encounter (principal); Y92.89 Other specified places as the place of occurrence of the external cause
CPT/HCPCS: 99282; J7512

== ENCOUNTER 2020-08-14 21:11 | Emergency (ER) | payer MEDICARE, MEDICAID ==
[2020-08-14 22:25] VITALS: BP 117/76
--- NOTE | 2020-08-14 23:40 | Event Note ---
ED Screening Note ED Screening Note: vaginal bleeding that began tonight states she has only changed her pad once no blood clots no abd pain LNMP 06/03/2020, states she is 10 weeks ' states she goes to my rn spine states she had an US at my [facility] today and reports it was normal no fever no n/v/d no abnormal discharge no PMHx no allergies to meds /P:8/A:0 This initial assessment/diagnostic orders/clinical plan/treatment(s) is/are subject to change based on patients health status, clinical progression and re- assessment by fellow clinical providers in the ED. Further treatment and workup at subsequent clinical providers discretion. Patient/guardian urged not to elope from the ED as their condition may be serious if not clinically assessed and managed. Initial orders include: labs, ua, us
[2020-08-15 00:02] LABS: Basophils % (Auto) 0.3 % (0.0-1.8); Eosinophils # (Auto) 0.1 K/mm3 (0.0-0.4); Eosinophils % (Auto) 1.6 % (0.0-4.3); Hematocrit 41.2 % (30.3-42.9); Hemoglobin 13.6 gm/dl (10.1-14.3); Lymphocytes # (Auto) 1.1 K/mm3 (1.2-5.4); Lymphocytes % (Auto) 15.7 % (13.4-35.0); Mean Corpuscular HGB Conc 33 % (30-34); Mean Corpuscular Volume 85 fl (79-97); Monocytes # (Auto) 0.8 K/mm3 (0.0-0.8); Platelet Count 242 K/mm3 (140-440); Red Blood Count 4.86 M/mm3 (3.65-5.03); Red Cell Distribution Width 16.1 % (13.2-15.2)
[2020-08-15 00:27] LABS: Alanine Aminotransferase 10 units/L (7-56); Blood Urea Nitrogen 7 mg/dL (7-17); Calcium 9.1 mg/dL (8.4-10.2); Hemolysis Index 1
[2020-08-15 00:31] LABS: BUN/Creatinine Ratio 18
--- NOTE | 2020-08-15 00:59 | Ultrasound Report ---
ULTRASOUND OBSTETRIC INDICATION / CLINICAL INFORMATION: vaginal bleeding, . Clinical Gestational Age (GA): 10 weeks 3 days TECHNIQUE: Transabdominal and Transvaginal. COMPARISON: None available. FINDINGS: GESTATIONAL SAC: Well-defined oval shape and intrauterine in location. YOLK SAC: No significant abnormality. EMBRYO/FETUS: No significant abnormality. - [place]-Rump Length = 2.3 cm = 9 weeks, 0 day(s). - Heart Rate, beats per minute (if present) = 180 ADNEXA: The ovaries are not visualized. No adnexal mass. FREE FLUID: None. ADDITIONAL FINDINGS: None. IMPRESSION: 1. Single, living intrauterine with estimated sonographic age of 9 weeks, 0 day(s). Signer Name: Yvonne Cotton MD Signed: 08/15/2020 12:54 AM Workstation Name: [id number]
--- NOTE | 2020-08-15 00:59 | Ultrasound Report ---
ULTRASOUND OBSTETRIC INDICATION / CLINICAL INFORMATION: vaginal bleeding, . Clinical Gestational Age (GA): 10 weeks 3 days TECHNIQUE: Transabdominal and Transvaginal. COMPARISON: None available. FINDINGS: GESTATIONAL SAC: Well-defined oval shape and intrauterine in location. YOLK SAC: No significant abnormality. EMBRYO/FETUS: No significant abnormality. - [place]-Rump Length = 2.3 cm = 9 weeks, 0 day(s). - Heart Rate, beats per minute (if present) = 180 ADNEXA: The ovaries are not visualized. No adnexal mass. FREE FLUID: None. ADDITIONAL FINDINGS: None. IMPRESSION: 1. Single, living intrauterine with estimated sonographic age of 9 weeks, 0 day(s). Signer Name: Yvonne Cotton MD Signed: 08/15/2020 12:54 AM Workstation Name: [id number]
[2020-08-15 01:43] LABS: Bilirubin,Urine NEG (Negative); Blood,Urine LG (Negative); Color,Urine Yellow (Yellow); Mucus,Urine 3+ /HPF; Urobilinogen,Urine < 2.0 mg/dL (<2.0)
[2020-08-15 01:50] LABS: RBC,Urine > 182.0 /HPF (0.0-6.0)
--- NOTE | 2020-08-15 01:54 | Emergency Department Report ---
ED General Adult HPI - General Chief complaint: Vaginal Bleeding Stated complaint: 10WKS PREG/BLEEDING Time Seen by Provider: 08/14/20 23:38 Source: patient Mode of arrival: Ambulatory Limitations: No Limitations - History of Present Illness Initial comments: pt is a 35 y/o aaf who is 10 weeks who presents for vaginal bleeding that began tonight , states she has only changed her pad once, there are no blood clots, no abd pain, LNMP 06/03/2020, states she iif followed by my certification [facility] selection specialist [facility], pt is G9, P8, A0, no fever,no n/v/d,no abnormal discharge, no PMHx, no allergies to meds , pt denies exacerbating or relieving factors. - Related Data Home Medications Medication Instructions Recorded Confirmed Last Taken Pnv95/Ferrous Fumarate/FA 1 tab PO DAILY 11/12/13 05/15/18 05/14/18 21:00 [ Vitamins] 1 Acetaminophen/Diphenhydramine 1 each PO HS PRN 05/15/18 05/15/18 05/14/18 22:00 [Tylenol Pm Ex-Strength Caplet] 1 Previous Rx's Medication Instructions Recorded Last Taken Type Ferrous Sulfate [Feosol 325 MG tab] 325 mg PO BID #60 tablet 05/15/18 Unknown Rx Ibuprofen [Motrin 800 MG tab] 800 mg PO Q6H PRN #30 tablet 05/15/18 Unknown Rx Lidocain2.5%/Prilocai2.5% [Emla] 5 gm TP ONCE #1 tube 05/15/18 Unknown Rx oxyCODONE /ACETAMINOPHEN [Percocet 1 - 2 tab PO Q4H PRN #30 tablet 05/15/18 Unknown Rx 5/325 mg] hydrOXYzine HCL [Atarax] 25 mg PO Q6HR PRN #20 tablet 07/12/18 Unknown Rx predniSONE [Prednisone] 50 mg PO DAILY #5 tablet 07/12/18 Unknown Rx cephALEXin [Keflex] 500 mg PO BID 7 Days #14 cap 08/15/20 Unknown Rx Allergies Allergy/AdvReac Type Severity Reaction Status Date / Time No Known Allergies Allergy Verified 03/22/13 12:31 ED Review of Systems ROS: Stated complaint: 10WKS PREG/BLEEDING Other details as noted in HPI Constitutional: denies: chills, fever Eyes: denies: eye pain, eye discharge, vision change ENT: denies: ear pain, throat pain Respiratory: denies: cough, shortness of breath, wheezing Cardiovascular: denies: chest pain, palpitations Endocrine: no symptoms reported Gastrointestinal: denies: abdominal pain, nausea, vomiting, diarrhea Genitourinary: other (vaginal bleeding ). denies: urgency, dysuria, frequency, hematuria, discharge Musculoskeletal: denies: back pain Skin: as per HPI Neurological: denies: headache, weakness, paresthesias Psychiatric: denies: anxiety, depression Hematological/Lymphatic: denies: easy bleeding, easy bruising ED Past Medical Hx - Past Medical History Previous Medical History?: Yes Hx Hypertension: No Hx Congestive Heart Failure: No Hx Diabetes: No Hx Deep Vein Thrombosis: No Hx Renal Disease: No Hx Sickle Cell Disease: No Hx Arthritis: Yes Hx Seizures: No Hx Asthma: Yes Hx COPD: No Hx HIV: No Additional medical history: Vaginal delivery x 4, Miscarriage x 1 - Social History Smoking Status: Never Smoker Substance Use Type: None - Medications Home Medications: Home Medications Medication Instructions Recorded Confirmed Last Taken Type Pnv95/Ferrous Fumarate/FA 1 tab PO DAILY 11/12/13 05/15/18 05/14/18 21:00 History [ Vitamins] 1 Acetaminophen/Diphenhydramine 1 each PO HS PRN 05/15/18 05/15/18 05/14/18 22:00 History [Tylenol Pm Ex-Strength Caplet] 1 Ferrous Sulfate [Feosol 325 MG tab] 325 mg PO BID #60 tablet 05/15/18 Unknown Rx Ibuprofen [Motrin 800 MG tab] 800 mg PO Q6H PRN #30 tablet 05/15/18 Unknown Rx Lidocain2.5%/Prilocai2.5% [Emla] 5 gm TP ONCE #1 tube 05/15/18 Unknown Rx oxyCODONE /ACETAMINOPHEN [Percocet 1 - 2 tab PO Q4H PRN #30 tablet 05/15/18 Unknown Rx 5/325 mg] hydrOXYzine HCL [Atarax] 25 mg PO Q6HR PRN #20 tablet 07/12/18 Unknown Rx predniSONE [Prednisone] 50 mg PO DAILY #5 tablet 07/12/18 Unknown Rx cephALEXin [Keflex] 500 mg PO BID 7 Days #14 cap 08/15/20 Unknown Rx ED Physical Exam - General Limitations: No Limitations General appearance: alert, in no apparent distress - Head Head exam: Present: atraumatic, normocephalic - Eye Eye exam: Present: normal appearance, EOMI Pupils: Present: normal accommodation - ENT ENT exam: Present: normal exam - Neck Neck exam: Present: normal inspection - Respiratory Respiratory exam: Present: normal lung sounds bilaterally. Absent: respiratory distress, wheezes, stridor, chest wall tenderness - Cardiovascular Cardiovascular Exam: Present: regular rate, normal rhythm. Absent: systolic murmur, diastolic murmur, rubs, gallop - GI/Abdominal GI/Abdominal exam: Present: soft, normal bowel sounds. Absent: distended, tenderness, guarding, rebound, rigid, bruit, hernia - Rectal Rectal exam: Present: deferred - External exam: Present: other (deferred per patient to OBGYN ) - Extremities Exam Extremities exam: Present: normal inspection - Back Exam Back exam: Present: normal inspection, full ROM. Absent: tenderness, CVA tenderness (R), CVA tenderness (L) - Neurological Exam Neurological exam: Present: alert, oriented X3, CN II-XII intact, normal gait - Psychiatric Psychiatric exam: Present: normal affect, normal mood - Skin Skin exam: Present: warm, dry, intact, normal color. Absent: rash ED Course Vital Signs 08/14/20 22:24 Temperature 98.3 F Pulse Rate 99 H Respiratory 16 Rate Blood Pressure 117/76 O2 Sat by Pulse 100 Oximetry ED Medical Decision Making - Lab Data Result diagrams: 08/14/20 23:54 08/14/20 23:54 Labs 08/14/20 08/14/20 08/14/20 23:54 23:54 23:54 WBC 7.1 RBC 4.86 Hgb 13.6 Hct 41.2 MCV 85 MCH 28 MCHC 33 RDW 16.1 H Plt Count 242 Lymph % (Auto) 15.7 [place] % (Auto) 11.0 H Eos % (Auto) 1.6 Baso % (Auto) 0.3 Lymph # (Auto) 1.1 L [place] # (Auto) 0.8 Eos # (Auto) 0.1 Baso # (Auto) 0.0 Seg Neutrophils % 71.4 H Seg Neutrophils # 5.1 Sodium 132 L Potassium 3.7 Chloride 97.6 L Carbon Dioxide 26 Anion Gap 12 BUN 7 Creatinine 0.4 L Estimated GFR > 60 BUN/Creatinine Ratio 18 Glucose 126 H Calcium 9.1 Total Bilirubin < 0.20 AST 14 ALT 10 Alkaline Phosphatase 97 Total Protein 7.3 Albumin 4.0 Albumin/Globulin Ratio 1.2 HCG, Quant [id number] H Urine Color Urine Turbidity Urine pH Ur Specific [place] Urine Protein Urine Glucose (UA) Urine Ketones Urine Blood Urine Nitrite Urine Bilirubin Urine Urobilinogen Ur Leukocyte Esterase Urine WBC (Auto) Urine RBC (Auto) U Epithel Cells (Auto) Urine Mucus Urine Yeast (Budding) 08/14/20 Unknown WBC RBC Hgb Hct MCV MCH MCHC RDW Plt Count Lymph % (Auto) [place] % (Auto) Eos % (Auto) Baso % (Auto) Lymph # (Auto) [place] # (Auto) Eos # (Auto) Baso # (Auto) Seg Neutrophils % Seg Neutrophils # Sodium Potassium Chloride Carbon Dioxide Anion Gap BUN Creatinine Estimated GFR BUN/Creatinine Ratio Glucose Calcium Total Bilirubin AST ALT Alkaline Phosphatase Total Protein Albumin Albumin/Globulin Ratio HCG, Quant Urine Color Yellow Urine Turbidity Slightly-cloudy Urine pH 6.0 Ur Specific [place] 1.031 H Urine Protein 30 mg/dl Urine Glucose (UA) Neg Urine Ketones Neg Urine Blood Lg Urine Nitrite Neg Urine Bilirubin Neg Urine Urobilinogen < 2.0 Ur Leukocyte Esterase Tr Urine WBC (Auto) 3.0 Urine RBC (Auto) > 182.0 U Epithel Cells (Auto) 6.0 Urine Mucus 3+ Urine Yeast (Budding) Few - Radiology Data Radiology results: report reviewed, image reviewed FINDINGS: GESTATIONAL SAC: Well-defined oval shape and intrauterine in location. YOLK SAC: No significant abnormality. EMBRYO/FETUS: No significant abnormality. - [place]-Rump Length = 2.3 cm = 9 weeks, 0 day(s). - Heart Rate, beats per minute (if present) = 180 ADNEXA: The ovaries are not visualized. No adnexal mass. FREE FLUID: None. ADDITIONAL FINDINGS: None. IMPRESSION: 1. Single, living intrauterine with estimated sonographic age of 9 weeks, 0 day(s). Signer Name: Yvonne Cotton MD Signed: 08/15/2020 12:54 AM Workstation Name: [id number] Transcribed By: [facility] Dictated By: Yvonne Cotton MD Electronically Authenticated By: Yvonne Cotton MD Signed Date/Time: 08/15/2053 DD/ TD/TT: - Medical Decision Making Ultrasound OB single IUP 9 weeks heart rate 180 bpm, UA noted positive for white blood cells and trace leukocytes we will treat for UTI, patient will follow-up with [facility] in 2 to 3 days. Patient will return to ED should symptoms worsen. Patient with no acute distress at this time, tolerating p.o. intake without nausea vomiting. Patient alert oriented x3 amatory with steady gait. Critical care attestation.: If time is entered above; I have spent that time in minutes in the direct care of this critically ill patient, excluding procedure time. ED Disposition Clinical Impression: Vaginal bleeding during Qualifiers: Weeks of gestation: 9 weeks Qualified Code(s): Z3A.09 - 9 weeks gestation of UTI (urinary tract infection) during Qualifiers: Trimester: first trimester Qualified Code(s): O23.41 - Unspecified infection of urinary tract in , first trimester Disposition: -01 TO HOME OR SELFCARE Is pt being admited?: No Does the pt Need Aspirin: No Condition: Stable Instructions: and Urinary Tract Infection, First Trimester of Additional Instructions: take medications as prescribed, follow up with OBGYN in 2-3 days, return to emergency if symptoms worsen. Prescriptions: cephALEXin [Keflex] 500 mg PO BID 7 Days #14 cap Referrals: [facility] [Provider Group] - 3-5 Days Forms: Work/School Release Form(ED) Time of Disposition: 02:29
== END 2020-08-15 02:45 | disposition home or self-care (01) ==
LOC: ED 21:11
DX: O23.41 Unspecified infection of urinary tract in pregnancy, first trimester (principal); O20.8 Other hemorrhage in early pregnancy; M19.91 Primary osteoarthritis, unspecified site; J45.909 Unspecified asthma, uncomplicated; Z3A.10 10 weeks gestation of pregnancy; Z79.1 Long term (current) use of non-steroidal anti-inflammatories (NSAID); Z79.899 Other long term (current) drug therapy
CPT/HCPCS: 36415; 76801; 76817; 80053; 81001; 84702; 85025